=== PATIENT | female | born 1940 | race Caucasian/White ===

== ENCOUNTER 2023-09-11 12:02 | Emergency (ER) | payer MEDICARE ==
[2023-09-11] MEDS ORDERED: Sodium Chloride 0.9% 10 ML Syringe FLUSH PRN (12:21)
[2023-09-11] MEDS ORDERED: Sodium Chloride 0.9% 1,000 ML IV ONE (12:21)
[2023-09-11 12:31] LABS: BASOPHILS ABSOLUTE AUTO 0.02 K/uL (0.00-0.20); BASOPHILS PERCENT AUTO 0.2 % (0.0-2.0); EOSINOPHILS ABSOLUTE AUTO 0.02 K/uL (0.00-0.50); EOSINOPHILS PERCENT AUTO 0.2 % (0.0-5.0); HEMOGLOBIN 7.7 g/dL (11.7-15.5); LYMPHOCYTES ABSOLUTE AUTO 1.82 K/uL (0.50-3.50); LYMPHOCYTES PERCENT AUTO 14.1 % (10.0-50.0); MEAN CORPUSCULAR HEMOGLOBIN 32.8 pg (28.2-33.3); MEAN CORPUSCULAR VOLUME 102.6 fL (84.0-98.0); MONOCYTES ABSOLUTE AUTO 0.63 K/uL (0.00-1.00); MONOCYTES PERCENT AUTO 4.9 % (2.0-14.0); NEUTROPHILS PERCENT AUTO 80.6 % (45.0-80.0); PLATELET COUNT,PLT 296 K/uL (150-350); RED BLOOD CELL COUNT 2.35 M/uL (3.77-5.09); RED CELL DISTRIBUTION WIDTH 12.9 % (11.2-14.1); WHITE BLOOD CELL COUNT,WBC 12.9 K/uL (4.0-10.2)
[2023-09-11 12:34] LABS: HEMATOCRIT 24.1 % (34.0-46.0)
[2023-09-11 12:54] LABS: APPEARANCE,URINE CLEAR; BILIRUBIN,URINE NEGATIVE (NEGATIVE); COLOR,URINE YELLOW; GLUCOSE,URINE NEGATIVE (NEGATIVE); KETONES,URINE NEGATIVE (NEGATIVE); LEUKOCYTE ESTERASE,URINE NEGATIVE (NEGATIVE); NITRITE,URINE NEGATIVE (NEGATIVE); OCCULT BLOOD,URINE SMALL (NEGATIVE); PROTEIN,URINE NEGATIVE (NEGATIVE); UROBILINOGEN,URINE 0.2 E.U./dL (0.2-1.0)
[2023-09-11 13:00] LABS: ALANINE AMINOTRANSFERASE,ALT 12 U/L (12-78); ALBUMIN 3.1 g/dL (3.4-5.0); ALKALINE PHOSPHATASE 73 IU/L (46-116); ASPARTATE AMNIOTRANSFERASE,AST 12 U/L (15-37); BILIRUBIN TOTAL 0.2 mg/dL (0.2-1.0); BLOOD UREA NITROGEN,BUN 75 mg/dL (7-18); CALCIUM 8.6 mg/dL (8.5-10.1); CARBON DIOXIDE,CO2 26.2 mmol/L (21.0-32.0); CHLORIDE,CL 104 mmol/L (98-107); CREATININE 1.11 mg/dL (0.51-1.17); GLUCOSE RANDOM 161 mg/dL (70-99); POTASSIUM,K 3.4 mmol/L (3.5-5.1); PROTEIN TOTAL,TP 6.1 g/dL (6.4-8.2); SODIUM,NA 140 mmol/L (136-145)
[2023-09-11 13:05] LABS: BACTERIA,URINE NOT SEEN /HPF (NONE TO FEW); EPITHELIAL CELLS,URINE RARE /LPF; RBC,URINE 0-5 /HPF; WBC,URINE 0-5 /HPF
[2023-09-11 13:06] LABS: ANION GAP 13.2 meq/L (7-15); ESTIMATED GFR 49 mL/min (>=60); MUCUS,URINE NOT SEEN /LPF (NEGATIVE)
[2023-09-11] MEDS ORDERED: Pantoprazole 40 MG Vial IVPUSH ONE (13:09)
[2023-09-11] MEDS ORDERED: Furosemide 20 MG/2 ML VIAL IVPUSH ONE (13:22)
[2023-09-11] MEDS ORDERED: Morphine 2 MG/ML SYRINGE IVPUSH ONE (13:26)
[2023-09-11] MEDS ORDERED: Sodium Chloride 0.9% 250 ML IV SCH (13:30)
[2023-09-11] MEDS: Ondansetron 4 MG/2 ML SDV IVPUSH ONE ×2 (13:47→20:40)
[2023-09-11 14:06] LABS: PROTHROMBIN TIME 37.5 SEC (9.0-11.1)
[2023-09-11] MEDS ORDERED: Potassium Bicarbonate/Cit Ac 20 MEQ Effervescent Tab PO ONE (14:09)
[2023-09-11] MEDS ORDERED: Phytonadione 5 MG in Sodium Chloride 0.9% 50 ML IV ONE ×2 (14:25→15:25)
[2023-09-11] MEDS ORDERED: Phytonadione 1 MG/0.5 ML Syringe IM ONE (14:27)
[2023-09-11] MEDS ORDERED: Sodium Chloride 0.9% 500 ML IV SCH (14:45)
== END 2023-09-11 15:50 ==
LOC: LL.ED 12:02
DX: K92.2 Gastrointestinal hemorrhage, unspecified (principal); I48.91 Unspecified atrial fibrillation; I10 Essential (primary) hypertension; E11.9 Type 2 diabetes mellitus without complications; Z79.01 Long term (current) use of anticoagulants; Z79.899 Other long term (current) drug therapy
CPT/HCPCS: 36415; 36430; 80053; 81001; 82272; 83605; 83735; 84484; 85025; 85610; 86850; 86900; 86901; 86920; 86922; 93005; 93010; 96361; 96374; 96375; 99284; 99285-25; A9270-GY; C9113; J2405; J3430; J3490; J7030; J7050; P9016